=== PATIENT | female | born 1980 | race Two or more races ===

== ENCOUNTER 2016-03-17 19:49 | Emergency (ER) | payer OTHER ==
[~2016-03-17] VITALS: Ht 152.4 cm; Wt 79.0 kg
[2016-03-17 20:09] VITALS: Ht 152.4 cm; Wt 79.0 kg
[2016-03-17] MEDS ORDERED: PHEN1SUP PR (22:13)
--- NOTE | 2016-03-17 22:22 | ERD ---
ER Documentation Chief Complaint Date/Time DATE: 03/17/16 TIME: 22:19 Chief Complaint abd pain x 1 week. also c/o blood in stool x 1 day HPI 35-year-old female complaining of blood in the stool. Patient stated that she had 3 bowel movements today with loose stool. Each time she noticed bright red blood. She is also has rectal pain. Patient also reports feeling "heaviness" in her stomach for the past week. Denies abdominal pain. Denies fever. Denies recent weight loss. ROS All systems reviewed and are negative except as per history of present illness. Medications Home Meds Active Scripts Phenylephrine HCl/[place] Butter* (Preparation H* Suppository) 1 Each Supp.rect, 1 EACH [place] TID Y for HEMORRHOID/EPISIOTMY PAIN, #10 SUPP.RECT Prov:JEFRY LÓPEZ. MANAGEMENT LECTURER 03/17/16 Reported Medications [None] No Conflict Check 05/18/14 Allergies Allergies: Coded Allergies: No Known Allergy (Unverified , 03/17/16) PMhx/Soc Medical and Surgical Hx: pt denies Medical Hx History of Surgery: Yes (cholecsystectomy) Anesthesia Reaction: No Hx Neurological Disorder: No Hx Respiratory Disorders: No Hx Cardiac Disorders: No Hx Psychiatric Problems: No Hx Miscellaneous Medical Probl: No Hx Alcohol Use: No Hx Substance Use: No Hx Tobacco Use: No Smoking Status: Never smoker Physical Exam Vitals Vital Signs Date Time Temp Pulse Resp B/P Pulse Ox O2 Delivery O2 Flow Rate FiO2 03/17/16 20:09 98.5 64 20 116/70 97 Physical Exam General impression: Well-developed, well-nourished. Alert, oriented, in no acute distress Head: Normocephalic, atraumatic. Neck: Supple, nontender. No lymphanopathy. No nuchal rigidity. Respiration: Normal respiratory effort. Lungs clear to auscultate bilaterally. No wheezes, rales or rhonchi. Cardiovascular: Regular rate and rhythm. No murmurs or extra heart sounds. Abdomen: Abdomen normal to inspection. Nontender. No masses or organomegaly. Bowel sounds normal. Rectal exam: Residual hemorrhoid tag noted externally, internal hemorrhoids palpated. Back: Normal to inspection. No midline spine tenderness. No CVA tenderness. Extremities: Extremities normal to inspection, nontender. ROM normal. Neuro: Mental status normal, speech normal. NURSING TECHN grossly intact. Skin: Normal turgor. No rash or lesions. Psych: Normal mood and affect. Results 24 hrs Laboratory Tests Test 03/17/16 20:50 Stool Occult Blood NEGATIVE Procedures/MDM Well-appearing 35-year-old female presents to ED with blood in the stool. Stool occult blood was negative. Given that she reports right red blood, and she has internal and external hemorrhoids. Likely her bleeding was from the hemorrhoids. Low suspicion for colon cancer, ulcerative colitis, Crohn's disease or diverticulitis. Patient appears well, stable for discharge and outpatient management. Medical decision making shared with patient and family. Education provided to patient and family. Patient and family expressed understanding of the plan. Medications on discharge: Preparation H suppository. Follow-up: Primary care provider in 2-3 days or return to ED if worse. Departure Diagnosis: Primary Impression: Hemorrhoids Hemorrhoid type: unspecified Qualified Code: K64.9 - Hemorrhoids, unspecified hemorrhoid type Condition: Good Patient Instructions: Hemorrhoids Referrals: [facility] YOU HAVE RECEIVED A MEDICAL SCREENING EXAM AND THE RESULTS INDICATE THAT YOU DO NOT HAVE A CONDITION THAT REQUIRES URGENT TREATMENT IN THE EMERGENCY DEPARTMENT. FURTHER EVALUATION AND TREATMENT OF YOUR CONDITION CAN WAIT UNTIL YOU ARE SEEN IN YOUR DOCTORS OFFICE WITHIN THE NEXT 1-2 DAYS. IT IS YOUR RESPONSIBILITY TO MAKE AN APPOINTMENT FOR FOLOW-UP CARE. IF YOU HAVE A PRIMARY DOCTOR --you should call your primary doctor and schedule an appointment IF YOU DO NOT HAVE A PRIMARY DOCTOR YOU CAN CALL OUR PHYSICIAN REFERRAL HOTLINE AT IF YOU CAN NOT AFFORD TO SEE A PHYSICIAN YOU CAN CHOSE FROM THE FOLLOWING [facility] [address] [facility] [facility] [address] [facility] [address] [facility] [address] [facility]. [facility] [address] [facility]. [facility]. [address] Additional Instructions: Call your primary care doctor TOMORROW for an appointment during the next 2-3 days.See the doctor sooner or return here if your condition worsens before your appointment time. JEFRY LÓPEZ. SOPHIA Mar 17, 2016 22:22
[2016-03-17 22:28] VITALS: BP 123/76; PULSE 63; RESP 16
== END 2016-03-17 22:30 | disposition home or self-care (01) ==
LOC: FTE 19:49
DX: K64.9 Unspecified hemorrhoids (principal)
CPT/HCPCS: 82270; Z7502; 99283

== ENCOUNTER 2017-02-25 18:30 | Emergency (ER) | END 2017-02-25 19:29 | disposition home or self-care (01) ==

== ENCOUNTER 2018-01-09 18:40 | Emergency (ER) | END 2018-01-09 21:42 | disposition home or self-care (01) ==